=== PATIENT | female | born 1955 | race Caucasian/White ===

== ENCOUNTER 2017-11-15 06:46 | Day surgery (SDC) | END 2017-11-15 10:18 | disposition home or self-care (01) ==

== ENCOUNTER 2018-10-14 16:54 | Emergency (ER) | payer OTHER ==
[~2018-10-14] VITALS: Ht 167.6 cm; Wt 87.0 kg
[~2018-10-14 16:54] MED LIST: LEVOTHYROXINE PO; LOSARTAN PO; METFORMIN PO
[2018-10-14 17:09] VITALS: Ht 167.6 cm; Wt 87.0 kg
[2018-10-14] MEDS ORDERED: morphine 4 MG/ML VIAL IV STA (22:42)
[2018-10-14] MEDS ORDERED: ONDANSETRON 4 MG INJ IV STA (22:42)
[2018-10-15] MEDS ORDERED: LOSA100T15 PO (03:31)
[2018-10-15] MEDS ORDERED: IBUP-1982 PO (03:31)
[2018-10-15] MEDS ORDERED: ASPI-535 PO (03:31)
[2018-10-15] MEDS ORDERED: NAPR220C2 PO (03:31)
[2018-10-15] MEDS ORDERED: SITA1TAB5 PO (03:31)
[2018-10-15] MEDS ORDERED: TRAM50TA2 PO (03:42)
[2018-10-15] MEDS ORDERED: ONDA4TAB14 PO (03:42)
--- NOTE | 2018-10-15 03:46 | ERD ---
ER Documentation Chief Complaint Chief Complaint left side body pain and headache since am HPI This 6-week with left-sided abdominal pain along with a mild headache since this morning. There are 2 separate issues that she said have been going on. The headache started yesterday. She said her blood pressure was running high. No focal neurologic complaints. No visual acuity changes. No other current issues. Abdominal pain started this morning. Pain is in the epigastric region. Patient has history of gastritis and she feels like this a reactivation. She says she has been under a lot of stress lately. Mild nausea but no vomiting no fevers or chills. No radiations of pain. No chest pain or shortness of breath. ROS All systems reviewed and are negative except as per history of present illness. Medications Home Meds Active Scripts Ondansetron (Ondansetron Odt) 4 Mg Tab.rapdis, 4 MG PO Q6H PRN for NAUSEA AND/OR VOMITING, #10 TAB Prov:JASMYNE FOSTER 10/15/18 Tramadol HCl (Tramadol HCl) 50 Mg Tablet, 50 MG PO Q4 PRN for PAIN, #20 TAB Prov:JASMYNE FOSTER. 10/15/18 Reported Medications Ibuprofen* (Ibuprofen*) 200 Mg Capsule, 200 MG PO QID PRN for PAIN, CAP 10/15/18 Aspirin Ec (Aspir 81) 81 Mg Tablet.dr, 81 MG PO DAILY, #30 TAB 10/15/18 Naproxen* (Aleve*) 220 Mg Capsule, 220 MG PO BID, #60 CAP 10/15/18 Losartan Potassium* (Losartan Potassium*) 100 Mg Tablet, 100 MG PO DAILY, TAB 10/15/18 Sitagliptin Phos/Metformin HCl (Janumet 50-1,000 mg Tablet) 1 Each Tablet, 1 EACH PO TID, TAB 10/15/18 Discontinued Reported Medications [Losartan] No Conflict Check, PO 11/15/17 [Metformin] No Conflict Check, PO 11/15/17 [Levothyroxine] No Conflict Check, PO 11/15/17 Allergies Allergies: Coded Allergies: No Known Allergy (Unverified , 10/15/18) PMhx/Soc History of Surgery: Yes (CHOLECYSTECTOMY) Anesthesia Reaction: No Hx Neurological Disorder: No Hx Respiratory Disorders: No Hx Cardiac Disorders: Yes (HTN) Hx Psychiatric Problems: No Hx Miscellaneous Medical Probl: Yes (DM, thyroid) Hx Alcohol Use: No Hx Substance Use: No Hx Tobacco Use: No Smoking Status: Never smoker Physical Exam Vitals Vital Signs Date Temp Pulse Resp B/P (MAP) Pulse Ox O2 O2 Flow FiO2 Time Delivery Rate 10/14/18 98.6 66 15 149/74 99 Room Air 23:41 (99) 10/14/18 98.6 65 18 154/77 99 Room Air 23:13 (102) 10/14/18 98.6 80 18 193/87 99 17:09 (122) Physical Exam Const: No acute distress Head: Atraumatic Eyes: Normal Conjunctiva ENT: Normal External Ears, Nose and Mouth. Neck: Full range of motion. No meningismus. Resp: Clear to auscultation bilaterally Cardio: Regular rate and rhythm, no murmurs Abd: Soft, non tender, non distended. Normal bowel sounds Skin: No petechiae or rashes Back: No midline or flank tenderness Ext: No cyanosis, or edema Neur: Awake and alert Psych: Normal Mood and Affect Result Diagram: 10/14/18225810/14/182258 Results 24 hrs Laboratory Tests Test 10/14/18 22:59 10/14/18 23:01 White Blood Count 7.5 10^3/ul Red Blood Count 4.48 10^6/ul Hemoglobin 13.7 g/dl Hematocrit 42.3 % Mean Corpuscular Volume 94.4 fl Mean Corpuscular Hemoglobin 30.6 pg Mean Corpuscular Hemoglobin Concent 32.4 g/dl Red Cell Distribution Width 12.6 % Platelet Count 142 10^3/UL Mean Platelet Volume 10.9 fl Immature Granulocytes % 0.300 % Neutrophils % 50.7 % Lymphocytes % 37.8 % Monocytes % 7.2 % Eosinophils % 3.6 % Basophils % 0.4 % Nucleated Red Blood Cells % 0.0 /100WBC Immature Granulocytes # 0.020 10^3/ul Neutrophils # 3.8 10^3/ul Lymphocytes # 2.8 10^3/ul Monocytes # 0.5 10^3/ul Eosinophils # 0.3 10^3/ul Basophils # 0.0 10^3/ul Nucleated Red Blood Cells # 0.0 10^3/ul Prothrombin Time 13.4 Sec Prothrombin Time Ratio 1.0 INR International Normalized Ratio 1.01 Activated Partial Thromboplast Time 30.9 Sec Sodium Level 142 mmol/L Potassium Level 4.1 mmol/L Chloride Level 102 mmol/L Carbon Dioxide Level 29 mmol/L Anion Gap 11 Blood Urea Nitrogen 8 mg/dl Creatinine 0.57 mg/dl Est Glomerular Filtrat Rate mL/min > 60 mL/min Glucose Level 109 mg/dl Calcium Level 9.4 mg/dl Bedside Glucose 114 mg/dL Current Medications Medications Dose Sig/Zheng Start Time Status Last (Trade) Ordered Route PRN Stop Time Admin Dose Reason Admin Ondansetron 4 mg ONCE STAT 10/14/18 DC 10/14/18 HCl (Zofran IV 22:42 23:08 Inj) 10/14/18 22:43 Morphine 4 mg ONCE STAT 10/14/18 DC 10/14/18 Sulfate IV 22:42 23:09 (morphine) 10/14/18 22:43 Procedures/MDM EKG: Rate/Rhythm: [Normal Sinus Rhythm] QRS, ST, T-waves: [No changes consistent w/ acute ischemia] Impression: [No evidence of ischemia or arrhythmia] Chest X-ray 1V Interpreted by me: Soft Tissue: No acute abnormalities Bones: No acute abnormalities Mediastinum/Cardiac Silhouette/Lungs: [No acute abnormalities] Medical decision makin-year-old female with essentially elevated blood pressure along with some mild epigastric pain. No evidence of cardiac disease. At this point clinically stable and pain-free. Blood pressure is normalized here in the department. She is stable for trial of outpatient management. I advised her to follow-up in 8 hours or so abdominal exams along with following up with her PCP to address her blood pressure issues. At this point I doubt cardiac issues as this is likely secondary to multiple issues concerning the same time, including reactivation of gastritis and noncompliance with high blood pressure medications. Departure Diagnosis: Primary Impression: Epigastric pain Additional Impressions: Headache Headache type: unspecified Headache chronicity pattern: unspecified pattern Intractability: not intractable Qualified Codes: R51 - Headache Hypertension Hypertension type: unspecified Qualified Codes: I10 - Essential (primary) hypertension Condition: Stable Patient Instructions: Abdominal Pain, Unknown Cause, (Female), Headache, Unspecified JASMYNE FOSTER Oct 15, 2018 03:46
[2018-10-15 04:00] VITALS: BP 127/78; PULSE 54; RESP 16
== END 2018-10-15 04:01 | disposition home or self-care (01) ==
LOC: E/R 16:54
DX: R10.13 Epigastric pain (principal); I10 Essential (primary) hypertension; E11.9 Type 2 diabetes mellitus without complications; Z79.82 Long term (current) use of aspirin; Z79.84 Long term (current) use of oral hypoglycemic drugs
CPT/HCPCS: 36415; 70450; 71045; 76705; 80048; 82962; 85025; 85610; 85730; 93005; 96374; 96375; 99285; J2270; J2405